=== PATIENT | male | born 1985 | race Caucasian/White ===

== ENCOUNTER 2022-10-12 11:08 | Outpatient (AMB) | payer OTHER, SELFPAY ==
--- NOTE | 2022-10-12 12:48 | AM.OFFWIN_ITS ---
Intake Vital Signs 10/12/22 12:52 Height 5 ft 2 in Weight 183 lb 4 oz BMI 33.5 BP 114/76 Blood Pressure Location Lt brachial Position Sitting Pulse 92 Pulse Source Pulse Oximeter Temp 97.3 F Temp Source Temporal Artery Scan Pulse Oximetry (%) 96 Oxygen Delivery Method Room Air Intake Visit Reasons: EP, Diarrhea Intake Note: Pt is here c/o having diarrhea for the past 4 days. Patient Tobacco Use Status: Never used Tobacco Allergies No Known Allergies Allergy (Verified 10/12/22 12:53) Do you need a note to return to daycare/school/sports/work: No HPI EP, Diarrhea HPI Details Patient is a 37-year-old male comes to the walk-in clinic complaining of 4 days of diarrhea. However he states that yesterday he did not have bowel movement. No meds taken. States that today it is not been frequent today, but his bowel movement was loose. He denies history of GI issues fever or chills, blood in the stool, coffee-ground stool, block stools, pain with defecation, urinary issues, abdominal pain, nausea or vomiting, eating suspected food, other viral symptoms, weakness or dizziness, malaise or myalgias, or other significant associated symptoms. [facility] Social History Patient Tobacco Use Status: Never used Tobacco Review of Systems Const All systems reviewed & are unremarkable except as noted in HPI and below Physical Exam Vital Signs: Last Vital Signs Temp 97.3 F 10/12/22 12:52 Pulse 92 10/12/22 12:52 BP 114/76 10/12/22 12:52 Pulse Ox 96 10/12/22 12:52 Oxygen Delivery Method Room Air 10/12/22 12:52 BMI result Body Mass Index 33.5 Assessment & Plan Assessment & Plan (1) Acute diarrhea: Code(s): R19.7 - Diarrhea, unspecified Plan Patient is a 37-year-old male with resolving diarrhea, likely viral nature. We discussed a bland diet and adequate fluid intake. He has no worrisome signs of dehydration. He did not have any stools yesterday, and so far he has not had frequency of movements today. Can trial immodium AD if needed. Follow-up if symptoms persist for more than another week or so, or worsen again. Coding Level of Care Code Est Pt Level 4 (12747) Diagnoses Acute diarrhea R19.7
[2022-10-12 12:52] VITALS: BP 114/76; PULSE 92; TEMP 36.3; O2SAT 96; BMI 33.5
== END 2022-10-12 13:42 | disposition home or self-care (01) ==
PROVIDERS: Visit Provider Physician Assistant Medical
DX: R19.7 Diarrhea, unspecified (principal)
CPT/HCPCS: 99214